=== PATIENT | male | born 1970 | race American Indian/Alaskan Native ===

== ENCOUNTER 2019-07-30 09:00 | Day surgery (SDC) | payer OTHER ==
[~2019-07-30 09:00] MED LIST: SODIUM CHLORIDE 0.9% 1000 ML 1,000 ML IV SCH
--- NOTE | 2019-07-30 09:55 | Anesthesia Day of Surgery ---
Anesthesia Day of Surgery - Day of Surgery Patient Examined: Yes Patient H&P Reviewed: Yes Patient is NPO: Yes
--- NOTE | 2019-07-30 09:55 | Anesthesia Consultation ---
Anesthesia Consult and Med Hx Date of service: 07/30/19 - Airway Anesthetic Teeth Evaluation: Good ROM Head & Neck: Adequate Mental/Hyoid Distance: Adequate Mallampati Class: Class I Intubation Access Assessment: Good - Pre-Operative Health Status ASA Pre-Surgery Classification: ASA2 Proposed Anesthetic Plan: MAC - Central Nervous System Hx Back Pain: Yes - Endocrine Hx Hypothyroidism: Yes
[2019-07-30] MEDS ORDERED: LIDOCAINE MPF (2%) 20 MG/1 ML VIAL 5 ML ONE (10:00)
[2019-07-30] MEDS ORDERED: PROPOFOL 200 MG/20 ML VIAL IV ONE ×2 (11:31→11:32)
[2019-07-30] MEDS ORDERED: fentaNYL 100 MCG/2 ML INJ ONE (11:31)
--- NOTE | 2019-07-30 12:05 | Procedure Note ---
Date of procedure: 07/30/19 Pre-op diagnosis: Colon Polyp Screening Post-op diagnosis: other (No Colon Polyps noted/ Melanosis Coli/Minor,Internal Hemorrhoid) Procedure: Colonoscopy Anesthesia: MAC Surgeon: AMERICO KIM Estimated blood loss: none Pathology: none Condition: stable Disposition: same day (Resume home medication and follow up in 1 to 2 weeks ([phone]).)
--- NOTE | 2019-07-30 12:59 | Operative Report ---
Procedure: Colonoscopy. INDICATIONS: This is a 49-year-old -[place] gentleman with an underlying history of hypothyroidism, who had a colonoscopy done as part of colon polyp screening. He does not give any family history of cancer. DESCRIPTION OF PROCEDURE: The procedure was done after getting the informed consent with MAC anesthesia. Initial rectal exam was unremarkable. Instrument was passed through the rectum onto the cecum, which was identified with ileocecal valve and appendiceal orifice. Visualization was fair to good. The terminal ileum was intubated and showed normal mucosa. The cecum was examined at the retroverted view and no additional pathology was noted. There was some mucosal evidence of melanosis coli, possibly from prior history of taking laxatives. The cecum, ascending colon, transverse colon, descending colon, and sigmoid showed normal mucosa. There was no evidence of any polyps, colitis, or diverticular disease and the rectum showed some minor internal hemorrhoid on the retroverted view. There were no biopsies done. No bleeding associated with the procedure. ASSESSMENT: Colon polyp screening, no colon polyps noted, melanosis coli, and minor internal hemorrhoid. PLAN: To encourage the patient to take home medication. If the patient has problems with constipation, medication will be given for that when the patient follows up on an outpatient basis. Again, there was no bleeding or complications associated with the procedure. The patient will be asked to resume home medication. Follow up in the office in 1-2 weeks' time. The procedure was done in the GI lab with the assistance of the GI lab team, which included Reta LACY including Yojana merino, with the assistance of anesthesia. JOB# [id number] RAPHAEL/JAMIE
[2019-07-30 13:02] VITALS: BP 108/68
--- NOTE | 2019-07-30 18:01 | Post Anesthesia Evaluation ---
- Post Anesthesia Evaluation Patient Participated: Yes Airway Patent: Yes Stable Respiratory Function: Yes Nausea/Vomiting: No Temp > 96.8F: Yes Pain Manageable: Yes Adequeate Hydration: Yes Anesthesia Complications: No Block Receding Appropriately: Not Applicable Patient on Ventilator: No
== END 2019-07-30 09:01 | disposition home or self-care (01) ==
LOC: GIO 09:00
DX: Z12.11 Encounter for screening for malignant neoplasm of colon (principal); K64.8 Other hemorrhoids; E03.9 Hypothyroidism, unspecified; Z79.899 Other long term (current) drug therapy; Z88.8 Allergy status to other drugs, medicaments and biological substances
CPT/HCPCS: 45378; J2704; J3010; J7030